=== PATIENT | male | born 1950 | race Caucasian/White ===

== ENCOUNTER 2018-09-12 10:55 | Inpatient (IN) | payer MEDICARE, MEDICAID | END 2018-09-19 16:30 | disposition home or self-care (01) | LOC: ER 10:55 → ED HOLD 14:30 → ORTHO 4S 19:29 | DX: I74.3 Embolism and thrombosis of arteries of the lower extremities (principal); L03.115 Cellulitis of right lower limb; I25.810 Atherosclerosis of coronary artery bypass graft(s) without angina pectoris; I50.22 Chronic systolic (congestive) heart failure; L03.116 Cellulitis of left lower limb; I77.6 Arteritis, unspecified; I48.91 Unspecified atrial fibrillation ==

== ENCOUNTER 2021-01-26 07:03 | Day surgery (SDC) | payer MEDICARE, MEDICAID ==
[~2021-01-26] VITALS: Ht 172.7 cm; Wt 66.4 kg
[2021-01-26] VITALS (10 sets, daily range): BP systolic 103–120; BP diastolic 61–84
[~2021-01-26 07:03] MED LIST: ALBU18HF2 PO; AMIO200T61 PO; APIX5TAB3 PO; BUDE10.2 PO; CARV6.253 PO; CEPH-585 PO; LISI2.5T2 PO; PENT400T17 PO; SIMV20TA PO
[2021-01-26] MEDS ORDERED: amiodarone 150mg/dext, iso-os 100 ML IV ONE (07:35)
[2021-01-26] MEDS ORDERED: MIDAZolam 1mg/ml 10ml vial IV ONE (07:35)
[2021-01-26] MEDS ORDERED: atropine 0.1mg/ml 10ml syringe IV ONE (07:35)
[2021-01-26] MEDS ORDERED: LORazepam 0.5 MG tablet PO ONE (07:35)
[2021-01-26] MEDS ORDERED: morphine 10mg/ml inj. IV ONE (07:35)
[2021-01-26] MEDS ORDERED: diphenhydrAMINE 25mg capsule PO ONE (07:35)
[2021-01-26] MEDS ORDERED: normal saline 1000ml 1,000 ML IV SCH (07:35)
[2021-01-26] MEDS ORDERED: AMIO200T61 PO (07:55)
[2021-01-26] MEDS ORDERED: NITR0.4T51 SL (07:55)
[2021-01-26] MEDS ORDERED: ASPI-500 PO (07:55)
[2021-01-26] MEDS ORDERED: FURO20TA4 PO (07:55)
[2021-01-26 08:09] LABS: BASOPHILS # (AUTO) 0.1 X10'3 (0-0.2); EOSINOPHILS # (AUTO) 0.2 X10'3 (0-0.9); MONOCYTES # (AUTO) 0.8 X10'3 (0-0.9); RED BLOOD COUNT 4.54 X10'6 (4.70-6.10); RED CELL DISTRIBUTION WIDTH 16.6 % (11.5-14.5)
[2021-01-26 08:12] LABS: HEMATOCRIT 43.2 % (42.0-52.0); LYMPHOCYTES % (AUTO) 17.5 % (21-51); MEAN CORPUSCULAR HEMOGLOBIN 30.9 PG (27.0-31.0); MEAN CORPUSCULAR HGB CONC 32.5 g/dL (33.0-36.5); MEAN CORPUSCULAR VOLUME 95.1 FL (78-98); MEAN PLATELET VOLUME 8.2 FL (7.4-10.4); MONOCYTES % (AUTO) 13.5 % (2-12); NEUTROPHILS # (AUTO) 3.8 X10'3 (1.8-7.7); PLATELET COUNT 245 X10'3 (140-440); WHITE BLOOD COUNT 5.9 X10'3 (4.5-11.0)
[2021-01-26 08:23] LABS: ALANINE AMINOTRANSFERASE 29 U/L (12-78); ALBUMIN 3.3 G/DL (3.4-5.0); ALBUMIN/GLOBULIN RATIO 0.9 (1.1-1.5); ALKALINE PHOSPHATASE 68 IU/L (46-116); ANION GAP 8 (8-16); ASPARTATE AMINO TRANSFERASE 23 U/L (10-37); BILIRUBIN,TOTAL 0.4 MG/DL (0.1-1.0); BLOOD UREA NITROGEN 49 MG/DL (7-18); BUN/CREATININE RATIO 19.3 (5.4-32.0); CALCIUM 8.5 MG/DL (8.5-10.1); CHLORIDE 106 MMOL/L (99-107); CREATININE 2.54 MG/DL (0.60-1.10); GLUCOSE 89 MG/DL (70-104); POTASSIUM 5.1 MMOL/L (3.5-5.1); SODIUM 140 MMOL/L (135-145); TOTAL CARBON DIOXIDE 26.1 MMOL/L (24-32); TOTAL PROTEIN 6.8 G/DL (6.4-8.2); eGFR 25 ML/MIN
== END 2021-01-26 11:30 | disposition home or self-care (01) ==
LOC: SSTAY O 07:03
PROVIDERS: ATTEND Internal Medicine Cardiovascular Disease
DX: I48.0 Paroxysmal atrial fibrillation (principal); I25.10 Atherosclerotic heart disease of native coronary artery without angina pectoris; I42.0 Dilated cardiomyopathy; I27.29 Other secondary pulmonary hypertension; E78.49 Other hyperlipidemia; I34.0 Nonrheumatic mitral (valve) insufficiency; J44.9 Chronic obstructive pulmonary disease, unspecified; Z95.1 Presence of aortocoronary bypass graft; Z79.01 Long term (current) use of anticoagulants; F17.210 Nicotine dependence, cigarettes, uncomplicated; Z88.5 Allergy status to narcotic agent; Z79.899 Other long term (current) drug therapy; Z79.82 Long term (current) use of aspirin
CPT/HCPCS: 36415; 80053; 82948; 85025; 92960; 93005; 94760; 94799; J2250; J2270; J7030; Q0163

== ENCOUNTER 2021-08-04 11:16 | Emergency (ER) | payer MEDICARE, MEDICAID ==
[~2021-08-04] VITALS: Ht 172.7 cm; Wt 68.0 kg
[~2021-08-04 11:16] MED LIST changes: +ASPI-500 PO; -CEPH-585 PO; +FURO20TA4 PO; +LISI2.5T14 PO; -LISI2.5T2 PO; +NITR0.4T51 SL
[2021-08-04 11:20] VITALS: BP 106/78
[2021-08-04] MEDS ORDERED: DOXYCYCLINE 100MG CAPSULE PO STA (12:30)
[2021-08-04] MEDS ORDERED: ibuprofen 200mg tablet PO ONE (12:30)
[2021-08-04] MEDS ORDERED: DOXY100C76 PO (13:05)
--- NOTE | 2021-08-04 15:11 | NUR ---
MERYL WEBBER [phone] NEIGHBOR.
== END 2021-08-04 15:31 | disposition home or self-care (01) ==
LOC: ER 11:17
DX: L97.511 Non-pressure chronic ulcer of other part of right foot limited to breakdown of skin (principal); L03.115 Cellulitis of right lower limb; I87.2 Venous insufficiency (chronic) (peripheral); M79.674 Pain in right toe(s); I48.91 Unspecified atrial fibrillation; I25.10 Atherosclerotic heart disease of native coronary artery without angina pectoris; E78.00 Pure hypercholesterolemia, unspecified; I10 Essential (primary) hypertension; I25.2 Old myocardial infarction; J44.9 Chronic obstructive pulmonary disease, unspecified; F12.90 Cannabis use, unspecified, uncomplicated; F19.90 Other psychoactive substance use, unspecified, uncomplicated; Z98.890 Other specified postprocedural states; Z72.89 Other problems related to lifestyle; Z60.2 Problems related to living alone; Z88.5 Allergy status to narcotic agent; Z79.82 Long term (current) use of aspirin; Z79.2 Long term (current) use of antibiotics; Z79.899 Other long term (current) drug therapy
CPT/HCPCS: 99284

== ENCOUNTER 2021-08-04 19:29 | Emergency (ER) | payer MEDICARE, MEDICAID ==
[~2021-08-04] VITALS: Ht 172.7 cm; Wt 59.0 kg
[~2021-08-04 19:29] MED LIST changes: +DOXY100C76 PO
[2021-08-04] MEDS ORDERED: normal saline 1000ML IV soln IVB ONE (19:50)
[2021-08-04 20:21] LABS: BASOPHILS % (AUTO) 0.5 % (0-1); EOSINOPHILS % (AUTO) 0.2 % (0-6); HEMATOCRIT 43.1 % (42.0-52.0); HEMOGLOBIN 14.3 g/dl (14.0-17.9); LYMPHOCYTES # (AUTO) 0.5 X10'3 (1.1-4.8); LYMPHOCYTES % (AUTO) 6.8 % (21-51); MEAN CORPUSCULAR HEMOGLOBIN 30.4 PG (27.0-31.0); MEAN CORPUSCULAR HGB CONC 33.1 g/dL (33.0-36.5); MEAN CORPUSCULAR VOLUME 91.9 FL (78-98); MEAN PLATELET VOLUME 7.9 FL (7.4-10.4); MONOCYTES # (AUTO) 0.7 X10'3 (0-0.9); MONOCYTES % (AUTO) 8.8 % (2-12); NEUTROPHILS # (AUTO) 6.5 X10'3 (1.8-7.7); NEUTROPHILS % (AUTO) 83.7 % (42-75); PLATELET COUNT 327 X10'3 (140-440); RED CELL DISTRIBUTION WIDTH 16.1 % (11.5-14.5); WHITE BLOOD COUNT 7.8 X10'3 (4.5-11.0)
[2021-08-04 20:39] LABS: ALANINE AMINOTRANSFERASE 22 U/L (12-78); ALBUMIN 3.1 G/DL (3.4-5.0); ALBUMIN/GLOBULIN RATIO 0.8 (1.1-1.5); ALKALINE PHOSPHATASE 74 IU/L (46-116); ANION GAP 12 (8-16); ASPARTATE AMINO TRANSFERASE 25 U/L (10-37); BILIRUBIN,TOTAL 0.4 MG/DL (0.1-1.0); BLOOD UREA NITROGEN 51 MG/DL (7-18); BUN/CREATININE RATIO 20.9 (5.4-32.0); CALCIUM 8.3 MG/DL (8.5-10.1); CHLORIDE 107 MMOL/L (99-107); CREATININE 2.44 MG/DL (0.60-1.10); GLUCOSE 106 MG/DL (70-104); POTASSIUM 4.9 MMOL/L (3.5-5.1); SODIUM 142 MMOL/L (135-145); TOTAL CARBON DIOXIDE 22.7 MMOL/L (24-32); TOTAL PROTEIN 6.9 G/DL (6.4-8.2); eGFR 26 ML/MIN
[2021-08-04 21:43] VITALS: BP 96/61
== END 2021-08-04 21:45 | disposition home or self-care (01) ==
LOC: ER 19:29
DX: E86.0 Dehydration (principal); R42 Dizziness and giddiness; R53.1 Weakness; R11.0 Nausea; R19.7 Diarrhea, unspecified; I48.91 Unspecified atrial fibrillation; I25.10 Atherosclerotic heart disease of native coronary artery without angina pectoris; E78.00 Pure hypercholesterolemia, unspecified; I10 Essential (primary) hypertension; I25.2 Old myocardial infarction; J44.9 Chronic obstructive pulmonary disease, unspecified; F12.90 Cannabis use, unspecified, uncomplicated; F19.90 Other psychoactive substance use, unspecified, uncomplicated; Z98.890 Other specified postprocedural states; Z72.89 Other problems related to lifestyle; Z60.2 Problems related to living alone; Z88.5 Allergy status to narcotic agent; Z79.82 Long term (current) use of aspirin; Z79.2 Long term (current) use of antibiotics; Z79.899 Other long term (current) drug therapy
CPT/HCPCS: 36415; 71045; 80053; 84484; 85025; 93005; 96360; 99285; J7030